=== PATIENT | male | born 1960 | race Caucasian/White ===

== ENCOUNTER 2023-01-04 05:14 | Observation (INO) ==
--- NOTE | 2022-12-06 15:03 | PAT Medication Instructions ---
Medication Instructions Date of Service December 06, 2022 Home Medications acetaminophen 500 mg tablet 500 mg PO Q6H PRN fexofenadine-pseudoephedrine ER 180 mg-240 mg tablet,ext.release 24 hr (Tatum- D 24 Hour) 1 tab PO QAM PRN omeprazole 10 mg capsule,delayed release 10 mg PO QAM DO NOT take the morning of surgery fexofenadine-pseudoephedrine ER 180 mg-240 mg tablet,ext.release 24 hr (Tatum- D 24 Hour) 1 tab PO QAM PRN Take morning of surgery With a small sip of water, OTHERWISE NOTHING TO EAT OR DRINK AFTER MIDNIGHT: acetaminophen 500 mg tablet 500 mg PO Q6H PRN(if needed) omeprazole 10 mg capsule,delayed release 10 mg PO QAM Take evening before surgery acetaminophen 500 mg tablet 500 mg PO Q6H PRN(if needed) Other Notes If you have any questions please call us at [phone] or [phone] or [phone] or [phone]
--- NOTE | 2022-12-15 12:39 | Anesthesiology Consultation ---
Date of Service December 15, 2022 Assessment & Plan (1) Encounter for pre-operative examination: - COVID screening: Per assessment on 12/15: No known COVID-19 positive contacts or current COVID-19 related symptoms. No recent Covid positive test result. - Outpatient joint assessment: Pt currently scheduled for inpatient pathway. If surgeon requests review for outpatient joint pathway, patient is an acceptable candidate for outpatient joint program from anesthesia standpoint pending surgeon's office assessment that patient is motivated, has good support and completes Same Day Joint Program preop requirements. - Preop testing: Patient having UA done at [facility] in near future- Awaiting UA. - Awaiting surgeon-ordered PCP preop evaluation (BARBER Giordano, appt 12/30). Chart Review Chart Review: Patient seen in Pre Admission Testing Teaching & Discussion Pre-Anesthesia Teaching/Discussion Notes: Instructed NPO after midnight before surgery,except medications with 15 cc of water. Medication instructions p rovided according to the PAT guidelines. History Surgery Operation Date: 01/04/23 07:00 Proposed Procedures p Right Total Knee Arthroplasty(Right) - El Gann MD Height/Weight Height: 5 ft 11 in Weight: 85.5 kg Allergies Allergy/AdvReac Type Severity Reaction Status Date / Time aspirin Allergy Severe Anaphylaxis Unverified 12/13/22 15:23 Medications Home Medications Medication Instructions Recorded Confirmed Last Taken acetaminophen 500 mg tablet 500 mg PO Q6H PRN Pain 12/03/22 12/03/22 Unknown fexofenadine-pseudoephedrine ER 1 tab PO QAM PRN Allergy Symptoms 12/03/22 12/03/22 Unknown 180 mg-240 mg tablet,ext.release 24 hr (Tatum-D 24 Hour) omeprazole 10 mg capsule,delayed 10 mg PO QAM 12/03/22 12/03/22 Unknown release Past Medical History Medical History GERD (gastroesophageal reflux disease) History of pulmonary embolism Travel + post-op vein stripping (2020), treated with AC for period of time (since discontinued), no issues since HTN (hypertension) No meds, being monitored Osteoarthritis Exercise / Class Metabolic Activity II 4-5 Yardwork/Stairs/Walk up hill (one FS (no CP, no SOB)) Past Surgical History Surgical History History of appendectomy History of arthroscopy of knee Multiple History of colonoscopy History of esophagogastroduodenoscopy (EGD) History of tonsillectomy History of varicose vein stripping LLE History of wisdom tooth extraction Past Anesthesia History No Hx of Anesthesia Complications and No Family Hx of Anesthesia Complications History of PONV No Hx of PONV and No Hx of Motion Sickness Social History Smoking Status: Never smoker Do You Dip or Chew Tobacco: No Hx Alcohol Use: Yes alcohol intake frequency: a few times a month Hx Substance Use: No substance use type: does not use Review of Systems Patient denies chest pain, shortness of breath, dyspnea on exertion, fever, chills, cough, wheezing, palpitations. Physical Exam Vital Signs VITALS BP 142/88 P 90 TEMP 98.2 SP02 98%RA RESP 16 PHYSICAL Mildly decreased cervical extension range of motion. Full TMJ range of motion. TMD 3.5 finger breaths Mallampati Score 2 Dentition: missing teeth, several crowns Lungs: clear throughout to auscultation Cardiac: regular rate and rhythm, no murmurs noted Spine: normal Carotid arteries: negative bruit Extremities: no LE edema Lab Results Anesthesia Preop Results Results Anesthesia Widget: WBC 5.38 K/ul (4.8-10.8) 12/15/22 Hgb 15.4 g/dl (14.0-18.0) 12/15/22 Hct 44.7 % (42.0-52.0) 12/15/22 Plt 190 K/uL (130-400) 12/15/22 Na 139 mmol/L (136-145) 12/15/22 K 3.8 mmol/L (3.5-5.1) 12/15/22 Cl 102 mmol/L (98-107) 12/15/22 CO2 29 mmol/L (21-32) 12/15/22 BUN 13 mg/dl (6-23) 12/15/22 Creat 0.84 mg/dl (0.6-1.4) 12/15/22 Glucose Level 90 mg/dl (70-99(Fasting)) 12/15/22 PT 11.0 Seconds (9.0-12.0) 12/15/22 PTT 28.4 Seconds (21.0-31.0) 12/15/22 INR 1.0 (0.9-1.1) 12/15/22 Blood Type B Positive 12/15/22 Antibody Screen NEGATIVE 12/15/22 Testing Electrocardiogram Date: 12/15/22 NSR at 91bpm. iRBBB. Chest X-Ray Date: 12/15/22 FINDINGS: PA and lateral chest radiographs are obtained. No prior studies are available for comparison at the time of dictation. The cardiomediastinal silhouette is unremarkable. The lungs and pleural spaces are clear. There is no pneumothorax. The bony thorax appears intact. IMPRESSION: No active disease in the chest.
[2023-01-04] MEDS ORDERED: ceFAZolin 2000MG 2,000 MG/15 ML SYR IV SCH (06:00)
[2023-01-04] MEDS ORDERED: ACETAMINOPHEN 500 MG TAB PO SCH (06:00)
[2023-01-04] MEDS ORDERED: LR 60ML/HR IV SCH (06:00)
[2023-01-04] MEDS ORDERED: LR 500ML BOLUS, THEN 15ML/HR IV SCH (06:00)
[2023-01-04] MEDS ORDERED: TRANEXAMIC ACID 1,000 MG **IV Pre-op IV SCH (06:00)
[2023-01-04] MEDS ORDERED: ROPIVACAINE 0.5% HCL/PF 150 MG, BUPIVACAINE 0.75% MPF 20 ML, EPINEPHrine 0.15 MG, dexAM... INFIL SCH (06:00)
[2023-01-04] MEDS ORDERED: Scopolamine 1 MG TDSY TD SCH (06:00)
[2023-01-04] MEDS ORDERED: TRANEXAMIC ACID 1,000 MG **IV Intra-op IV SCH (06:00)
[2023-01-04] MEDS ORDERED: ROPIVACAINE 0.5% 5 MG/ML 30 ML VIAL ONE (06:20)
--- NOTE | 2023-01-04 06:35 | History & Physical Bridge Note ---
Date of Service January 04, 2023 History & Physical Bridge Note I have examined the patient, reviewed the History & Physical and in the interval since the performance of the History & Physical I have noted the following changes of clinical significance: no changes noted
[2023-01-04] MEDS ORDERED: BUPIVACAINE 0.5 % 5 MG/1 ML PF 10ML VIAL ONE (06:39)
[2023-01-04] MEDS ORDERED: MIDAZOLAM HCL 1 MG/ML 2ML VIAL ONE (06:40)
[2023-01-04] MEDS ORDERED: PROPOFOL IV EMULSION 10 MG/ML 20 ML VIAL IV ONE (06:45)
[2023-01-04] MEDS ORDERED: ATROPINE SULFATE 0.1 MG/ML 10ML SYR IV PRN (06:56)
[2023-01-04] MEDS ORDERED: ePHEDrine sulfate 50 MG/ML AMP IV PRN (06:56)
[2023-01-04] MEDS ORDERED: HYDROmorphone INJ 1 MG/ML SYRINGE IV PRN (06:56)
[2023-01-04] MEDS ORDERED: ONDANSETRON INJ 2 MG/ML 2 ML VIAL IV PRN ×2 (06:56→10:14)
[2023-01-04] MEDS ORDERED: DEXAMETHASONE SOD INJ 4 MG/ML VIAL ONE (07:29)
[2023-01-04] MEDS ORDERED: ORTHO JOINT ANESTHETIC ONE (07:39)
--- NOTE | 2023-01-04 10:03 | Operative Report ---
Post Operative Report Pre & Post Diagnosis Operation Date: 01/04/23 07:00 Pre-Op Diagnosis: Right Knee Osteoarthritis Post-Op Diagnosis: Right Knee Osteoarthritis I identified the patient and participated in the time-out.: Yes Procedure Operation Date: 01/04/23 07:00 Actual Procedures p Right Total knee replacement, imageless computer assisted navigation (Right) - El Gann MD Surgeon El Gann MD Manager Latin Shantel Samayoa PA-C (No fellow avail) Estimated Blood Loss 125 Findings See Below Examined Under Anesthesia: ROM -- There was 10 degrees to 100 degrees of flexion Ligamentous examination -- revealed stable Basil, posterior drawer, varus and valgus stress at 0 and 30 degrees. Outerbridge Grade IV changes of medial compartment, grade III changes Patellofemoral compartment, and grade II changes lateral compartment. Fluids 1000 cc Specimens Right knee contents Anesthesia Type MAC Spinal Regional Complications none Indications This is a 62-year-old male who has clinical and radiographic findings consistent with osteoarthritis of the a right knee. I recommended that a right total knee replacement be performed. The patient understands the risks of surgery, which include but not limited to: bleeding, infection, re-operation, damage to nerves and arteries, continued knee pain, knee stiffness, DVT, and . The patient understands all of these instructions and explanations, all of his questions have been satisfactorily addressed and the patient has elected to proceed. Informed consent was signed. Description of Procedure IMPLANTS: 1. Femur: Triathlon #6 Right PS. 2. Tibia: Triathlon #6 [place]. 3. Insert: Triathlon #6 x 9 mm PS X3 poly. 4. Patella: Triathlon A35 x 10 mm X3 poly. 5. Palacos cement. Shantel Samayoa PA-C is assisting with positioning, retracting, and closure due to fellow not available. Procedure: The patient was taken to the Operating Room and placed in the supine position af ter spinal and adductor canal nerve block was administered. My initials and a multidisciplinary time-out were used to identify the right leg as the correct operative limb. A tourniquet was placed high in the thigh. Prior to the incision, 2 grams of intravenous Ancef were given. The right leg was then prepped and draped in a standard sterile fashion. An Esmarch was used to exsanguinate the leg and the tourniquet was inflated to 250 mmHg. The planned mid-line 20 cm incision was created exposing the extensor mechanism. The medial parapatellar arthrotomy was made and the patella was everted. The patella was addressed first. It was prepared by reaming from 22 mm down to 13 mm. An A35 button was found to fit best. The peg holes were made in the standard fashion. The femur was addressed next and using computer assisted OrthoAlign with 3 degrees of flexion and 0 degrees of valgus, removing 10 mm in the standard fashion for the distal cut. The cut was made and the 4-in-1 cutting block for a size 6 femur was placed. These cuts and the cuts to place the box were made in the standard fashion. Our attention was then drawn to the tibia cut with using imageless computer assisted OrthoAlign, taking 2 mm from the medial low side. There was sufficient extension and flexion gap to fit a 9 mm spacer. A #6 Tibial baseplate fit well. A trial with a 9 mm spacer showed excellent stability in both flexion and extension, with good ligament balance, and thumbs free patellar tracking. Range of motion of 0-125 degrees. The tibial baseplate was prepped for the keel and stem. All components were removed. The tourniquet was deflated. Hemostasis was obtained. 90 ml of total knee cocktail were injected into the soft tissues and periosteum. After a 15 minute break, the limb was exsanguinated again and the tourniquet was re-inflated. All surfaces were copiously irrigated prior to placement of the components. The femoral component followed by Tibial baseplate were cemented in place and the 9 mm X3 poly was placed. Next, the patellar button was placed using the same cement. Once the cement had cured, the range of motion and stability were unchanged. The extensor mechanism was closed with 1-0 Vicryl and 0 Stratafix with the knee bent approximately 60 degrees in a standard fashion. The peritenon and deep fascia was closed with 2-0 Vicryl. The subcutaneous layer was closed with 3-0 Vicryl. The skin was closed with Zipline and shield. The limb was cleaned and dried. 4x4 dressing was placed over top followed by ABDs, sterile Webril, and a foot to thigh Terry bandage. The patient was then transferred to the Recovery Room in stable condition. The sponge and needle counts were correct. POST-OP INSTRUCTIONS: The patient will be WBAT. The patient will be admitted to the hospital. Complete 24 hour course antibiotics. Labs will be obtained during the stay. DVT prophylaxis will included Eliquis 2.5 mg BID for 6 weeks, TEDs, and mechanical foot pumps. Plan outpatient dressing change postop day #4 and covered with a Silverlon dressing. I attest to the content of the Intraoperative Record and any orders documented therein. Any exceptions are noted below.
--- NOTE | 2023-01-04 10:03 | Post Operative Brief Note ---
Immediate Post Op Note v1 Date of Surgery January 04, 2023 Pre & Post Diagnosis Operation Date: 01/04/23 07:00 Pre-Op Diagnosis: Right Knee Osteoarthritis Post-Op Diagnosis: Right Knee Osteoarthritis I identified the patient and participated in the time-out.: Yes Procedure Operation Date: 01/04/23 07:00 Actual Procedures p Right Total Knee Arthroplasty(Right) - El Gann MD Surgeon El Gann MD Mutuel Department Manager Shantel Samayoa PA-C (No fellow avail) Estimated Blood Loss 125 Findings Consistent with Post-Op Diagnosis Fluids 1000 cc Specimens Right knee contents Anesthesia Type MAC Spinal Regional Complications none
[2023-01-04] MEDS ORDERED: METOCLOPRAMIDE HCL INJ 5 MG/ML 2 ML VIAL IV PRN (10:14)
[2023-01-04] MEDS ORDERED: HYDROmorphone INJ 0.5 MG/0.5 ML SYR IV PRN (10:14)
[2023-01-04] MEDS ORDERED: MAGNESIUM HYDROXIDE SUSP 30 ML UDC PO PRN (10:14)
[2023-01-04] MEDS ORDERED: NALOXONE HCL 0.4 MG/1 ML VIAL/CARP IV PRN (10:14)
[2023-01-04] MEDS ORDERED: bisacodyL 10 MG SUPP PR PRN (10:14)
[2023-01-04] MEDS ORDERED: SODIUM CHLORIDE 0.9% 1,000 ML IV SCH (10:15)
[2023-01-04] MEDS ORDERED: TAMSULOSIN HCL 0.4 MG CAP PO PRN (10:18)
--- NOTE | 2023-01-04 10:36 | Operative Report ---
Post Operative Report Pre & Post Diagnosis Operation Date: 01/04/23 07:00 Pre-Op Diagnosis: Right Knee Osteoarthritis Post-Op Diagnosis: Right Knee Osteoarthritis I identified the patient and participated in the time-out.: Yes Procedure Operation Date: 01/04/23 07:00 Actual Procedures p Right Total Knee Arthroplasty(Right) - El [place] Gann MD Surgeon Dr Gann Manager Physical Shantel Samayoa PA-C (No fellow avail) Estimated Blood Loss 125 Findings Consistent with Post-Op Diagnosis Specimens none Description of Procedure Pt was taken to operating room and properly positioned for procedure. Refer to anesthesia's note for anesthesia used. Pt was given pre-op antibiotics. Prepped and draped in sterile fashion. I was present during the entire case and assisted with positioning, instrumentation, closure and dressings. Please see surgeon's op report for further detail. Pt was awake and transferred to PACU in stable condition I attest to the content of the Intraoperative Record and any orders documented therein. Any exceptions are noted below.
--- NOTE | 2023-01-04 11:24 | XRay Report ---
XR knee RT 1 or 2V routine CLINICAL HISTORY: Surgical Post Op TECHNIQUE: 2 views of the right knee were obtained. Comparison: Comparison is made to leg length study 01/28/2022 FINDINGS: Patient is status post total knee arthroplasty with expected postsurgical changes including soft tiss ue swelling and subcutaneous emphysema. No periarticular lucency or hardware fracture is seen. IMPRESSION: Expected postoperative appearance status post placement of total knee arthroplasty. ACT 112: Negative or not required by law. Electronically signed by: Jaime Kasper M.D. 01/04/2023 11:23 AM
[2023-01-04] MEDS: ALLERGY Noted to ORDERED Medication SCH ×6 (13:08→23:23)
--- NOTE | 2023-01-04 14:09 | Anesthesiology Progress Note ---
Date of Service January 04, 2023 Anesthesia Post Procedure Vital Signs Vital Signs: Temp Pulse Resp BP Pulse Ox O2 Del Method O2 Flow Rate 01/04/23 13:58 36.7 C 82 16 146/106 H 96 Room Air 01/04/23 12:30 82 14 132/87 98 Room Air 01/04/23 12:00 74 14 149/94 H 99 Room Air 01/04/23 11:45 72 14 135/99 98 Room Air 01/04/23 11:30 80 16 133/97 97 Room Air 01/04/23 11:20 95 H 12 139/105 H 98 Room Air 01/04/23 11:10 80 12 142/93 H 97 Room Air 01/04/23 11:00 92 H 18 142/92 H 98 Room Air 01/04/23 10:50 79 12 138/96 98 Room Air 01/04/23 10:40 82 12 153/88 H 97 Room Air 01/04/23 10:30 36.4 C L 84 13 148/85 H 97 Room Air 01/04/23 10:20 81 15 128/82 99 Oxymask 9 01/04/23 10:11 36.5 C 90 15 136/91 100 Oxymask 9 01/04/23 06:21 176/108 H 01/04/23 05:55 169/115 H 01/04/23 05:31 36.8 C 83 20 172/124 H 100 Room Air Pain Intensity Right Knee: Pain Intensity: 5 Transfer of Care Handoff Completed per policy Notes Mental Status: alert / awake / arousable Patient Amnestic to Procedure: Yes Nausea / Vomiting: adequately controlled Pain: adequately controlled Airway Patency, RR, SpO2: stable & adequate BP & HR: stable & adequate Hydration State: stable & adequate Anesthetic Complications: no major complications apparent
[2023-01-04] MEDS: ACETAMINOPHEN 500 MG TAB PO SCH ×2 (14:59→21:01)
[2023-01-04] MEDS: Scopolamine CHECK PATCH PLACEMENT SCH ×2 (15:00→23:23)
[2023-01-04] MEDS: oxyCODONE HCL IR 5 MG TAB (IMMEDIATE RELEASE) PO PRN ×2 (15:48→23:22)
--- NOTE | 2023-01-04 16:11 | Orthopedic Progress Note ---
Date of Service January 04, 2023 Assessment & Plan (1) Osteoarthritis of right knee: Plan: POD #0 s/p Right TKA, doing as well as expected. Resume diet. WBAT with walker. OOB to chair. Continue pain control. Check labs tomorrow. DVT prophylaxis: TEDs 3 weeks, foot pumps while in hospital, Eliquis 2.5 mg BID for 6 weeks. PT/OT. Will have dressing changed in the office 01/07/23. D/C planning. Present on Admission?: Yes Admission and Anticipated Discharge Date Admission Date: January 04, 2023 Subjective Doing well Physical Exam Physical Exam: RLE: Dressing clean, dry, intact. wiggiling toes and ankle. Sensation to light touch intact. BCR < 2 sec. Able to preform straight leg raise. Results & Data Vital Signs (Past 12 Hours) Vital Signs Temp Pulse Resp BP Pulse Ox O2 Del Method O2 Flow Rate 01/04/23 13:58 36.7 C 82 16 146/106 H 96 Room Air 01/04/23 12:30 82 14 132/87 98 Room Air 01/04/23 12:00 74 14 149/94 H 99 Room Air 01/04/23 11:45 72 14 135/99 98 Room Air 01/04/23 11:30 80 16 133/97 97 Room Air 01/04/23 11:20 95 H 12 139/105 H 98 Room Air 01/04/23 11:10 80 12 142/93 H 97 Room Air 01/04/23 11:00 92 H 18 142/92 H 98 Room Air 01/04/23 10:50 79 12 138/96 98 Room Air 01/04/23 10:40 82 12 153/88 H 97 Room Air 01/04/23 10:30 36.4 C L 84 13 148/85 H 97 Room Air 01/04/23 10:20 81 15 128/82 99 Oxymask 9 01/04/23 10:11 36.5 C 90 15 136/91 100 Oxymask 9 01/04/23 06:21 176/108 H 01/04/23 05:55 169/115 H 01/04/23 05:31 36.8 C 83 20 172/124 H 100 Room Air Laboratory Results Impressions Knee X-Ray 01/04/23 10:14 XR knee RT 1 or 2V routine CLINICAL HISTORY: Surgical Post Op TECHNIQUE: 2 views of the right knee were obtained. Comparison: Comparison is made to leg length study 01/28/2022 FINDINGS: Patient is status post total knee arthroplasty with expected postsurgical changes including soft tissue swelling and subcutaneous emphysema. No periarticular lucency or hardware fracture is seen. IMPRESSION: Expected postoperative appearance status post placement of total knee arthroplasty. ACT 112: Negative or not required by law. Electronically signed by: Jaime Kasper M.D. 01/04/2023 11:23 AM
[2023-01-04] MEDS: FERROUS GLUCONATE 324 MG TAB PO SCH (17:19)
[2023-01-04] MEDS: ASCORBIC ACID 500 MG TAB PO SCH (17:20)
[2023-01-04] MEDS: ceFAZolin 2000MG 2,000 MG/15 ML SYR IV SCH ×2 (17:20→23:23)
[2023-01-04] MEDS ORDERED: SENNA 8.6 MG TAB PO SCH (21:00)
[2023-01-04] MEDS: DOCUSATE SODIUM 100 MG CAP PO SCH (21:01)
--- OUTSIDE RECORDS SUMMARY | 2023-01-05 00:21 | External Medical Summary | Continuity of Care Document ---
Author Name Unknown Organization [facility] [address] [place], [place] [address] Address [address] [place] [phone] Care Team Providers Care Electrostatic Painter Name Role Phone Mckenzie Gaytan Primary Care Physician [phone] [facility] [id number] Date(s): 10/22/22 - 10/22/22 [facility] [address] [place] [place] [id number] [facility] [address] [address] Encounter Diagnosis OA (osteoarthritis) of knee(Discharge Diagnosis) - 10/22/22 Discharge Disposition: Home or Self Care Attending Physician: CYNTHIA Carroll Dennis Allergies, Adverse Reactions, Alerts Substance Reaction Severity Status aspirin Swelling Active Allergy Not found in Search 1 Active 1Root Beer Medications Tatum 180 mg oral tablet Start: 11/29/12 9:38:00, 1 tab, PO, Daily, PRN: as needed for allergy symptoms Start Date: 11/29/12 Status: Ordered Euflexxa 10 mg/mL intra-articular solution Start: 10/14/22 12:38:00 EDT, 20 mg =, intra-articular, q7days, Disp# 12 mL, Refills: 0, 6 syringesfor B/L knees. Please ship to physician's office: [address] [facility] [address], Note to Pharmacy: B/L KNEE DJD M17.0, Pharmacy: Ac... Start Date: 10/14/22 Stop Date: 11/04/22 Status: Ordered Nasal Mist 0.05% nasal spray Start: 05/26/22 9:04:00 EST, 2 spray, each nostril, bid Start Date: 05/26/22 Status: Ordered PriLOSEC OTC 20 mg oral delayed release tablet Start: 11/29/12 9:37:00, 1 tab, PO, Daily Start Date: 11/29/12 Status: Ordered Mental Status 10/22/22 Barriers to Learning one year None evide nt Mandatory Health Literacy Documentation Yes Health Literacy Communication Barriers N ever Primary Language Persian Problem List Condition Confirmation Course Effective Dates Status Health St atus Informant Knee pain, left Confirmed Active OA (osteoarthritis) of knee Confirmed Active Varicose veins of lower extremity Confirmed Active Diagnosis Diagnosis Type Effective Dates Health Status Cl inical Service Informant OA (osteoarthritis) of knee Discharge Diagnosis 10/22/22 Procedures Procedure Date Related Diagnosis Body Site Status Appendectomy Completed Hernia repair Completed knee surgery Completed Tonsillectomy and adenoidectomy Completed vein removed Completed Vital Signs Most recent to oldest [Reference Range]: 1 Height 181 cm (10/22/22 1:04 PM) Patient Weight 85 kg (10/22/22 1:04 PM) Body Mass Index 25.95 kg/m2 (10/22/22 1:04 PM) Social History Social History Type Response Smoking Status Never smoked cigaret joey Sex Male Patient Care team information Care Team Personnel Name: CYNTHIA Mosley Lynn Position: Physician Arborist Exempt - Vasc Surg Member Role: Lifetime Relationship Address: Address: [address] [place] [address] Name: CYNTHIA Gaytan Jennifer L Position: Referring Member Role: Primary Care Provider Address: Address: [address] [place] [id number] Care Team Related Persons Name: CRISTIAN PANDEY Address: [place] Address: home [address] [phone] Name: ANNA PANDEY Address: [address] [id number]
--- OUTSIDE RECORDS SUMMARY | 2023-01-05 00:21 | External Medical Summary | Continuity of Care Document ---
Author Name Unknown Organization [facility] [address] [place], [place] [address] Address [address] [place] [phone] Care Team Providers Care Gas Attendant Name Role Phone Mckenzie Gaytan Primary Care Physician [phone] Encounter [facility] [id number] Date(s): 05/26/22 - 05/26/22 [facility] [address] [place] [id number] [facility] [address] [address] Encounter Diagnosis Knee osteoarthritis(Discharge Diagnosis) - 05/26/22 Discharge Disposition: Home or Self Care Attending Physician: CYNTHIA Carroll, Gerald Allergies, Adverse Reactions, Alerts Substance Reaction Severity Status aspirin Swelling Active Allergy Not found in Search 1 Active 1Root Beer Medications Tatum 180 mg oral tablet Start: 11/29/12 9:38:00, 1 tab, PO, Daily, PRN: as needed for allergy symptoms Start Date: 11/29/12 Status: Ordered Euflexxa 10 mg/mL intra-articular solution Start: 05/26/22 17:18:00 EST, 20 mg =, intra-articular, q7days, Disp# 12 mL, Refills: 0, 6 syringesfor B/L knees. Please ship to physician's office: [address] [facility]. [address] [address], Note to Pharmacy: B/L KNEE DJD M17.0, Pharmacy: .. Start Date: 05/26/22 Stop Date: 06/16/22 Status: Ordered Nasal Mist 0.05% nasal spray Start: 05/26/22 9:04:00 EST, 2 spray, each nostril, bid Start Date: 05/26/22 Status: Ordered PriLOSEC OTC 20 mg oral delayed release tablet Start: 11/29/12 9:37:00, 1 tab, PO, Daily Start Date: 11/29/12 Status: Ordered Mental Status 05/26/22 Barriers to Learning one year None evide nt Mandatory Health Literacy Documentation Yes Health Literacy Communication Barriers N ever Primary Language Urdu Problem List Condition Confirmation Course Effective Dates Status Health St atus Informant Knee pain, left Confirmed Active Varicose veins of lower extremity Confirmed Active Diagnosis Diagnosis Type Effective Dates Health Status Clinical Service Informant Knee osteoarthritis Discharge Diagnosis 05/26/22 Procedures Procedure Date Related Diagnosis Body Site Status Appendectomy Completed Hernia repair Completed knee surgery Completed Tonsillectomy and adenoidectomy Completed vein removed Completed Vital Signs Most recent to oldest [Reference Range]: 1 Height 182.5 cm (05/26/22 9:03 AM) Patient Weight 86 kg (05/26/22 9:03 AM) Body Mass Index 25.82 kg/m2 (05/26/22 9:03 AM) Social History Social History Type Response Smoking Status Never smoked cigaret joey Sex Male Patient Care team information Personnel Name: CYNTHIA Gaytan, Mckenzie Saul Address: Address: [address] [place] [id number]
--- OUTSIDE RECORDS SUMMARY | 2023-01-05 00:21 | External Medical Summary | Continuity of Care Document ---
Author Name Unknown Organization [facility] [address] [place], [place] [address]A Address [address] [place] [phone] Care Team Providers Care Web Site Manager Name Role Phone Mckenzie Gaytan Primary Care Physician [phone] [id number] 08/13/22 - 08/13/22 [facility] [address] [id number] [facility] [address] [address] Encounter Diagnosis OA (osteoarthritis) of knee(Discharge Diagnosis) - 08/13/22 Discharge Disposition: Home or Self Care Attending Physician: CYNTHIA Carroll Dennis Allergies, Adverse Reactions, Alerts Substance Reaction Severity Status aspirin Swelling Active Allergy Not found in Search 1 Active 1Root Beer Medications Tatum 180 mg oral tablet Start: 11/29/12 9:38:00, 1 tab, PO, Daily, PRN: as needed for allergy symptoms Start Date: 11/29/12 Status: Ordered Euflexxa 10 mg/mL intra-articular solution Start: 06/14/22 15:54:00 EST, 20 mg =, intra-articular, q7days, Disp# 12 mL, Refills: 0, 6 syringesfor B/L knees. [facility] [address] [address], Note to Pharmacy: B/L KNEE DJD M17.0, Pharmacy: Ac... Start Date: 06/14/22 Stop Date: 07/05/22 Status: Ordered Nasal Mist 0.05% nasal spray Start: 05/26/22 9:04:00 EST, 2 spray, each nostril, bid Start Date: 05/26/22 Status: Ordered PriLOSEC OTC 20 mg oral delayed release tablet Start: 11/29/12 9:37:00, 1 tab, PO, Daily Start Date: 11/29/12 Status: Ordered Mental Status 08/13/22 Barriers to Learning one year None evide nt Mandatory Health Literacy Documentation Yes Health Literacy Communication Barriers N ever Primary Language Haitian Problem List Condition Confirmation Course Effective Dates Status Health St atus Informant Knee pain, left Confirmed Active OA (osteoarthritis) of knee Confirmed Active Varicose veins of lower extremity Confirmed Active Diagnosis Diagnosis Type Effective Dates Health Status Cl inical Service Informant OA (osteoarthritis) of knee Discharge Diagnosis 08/13/22 Procedures Procedure Date Related Diagnosis Body Site Status Appendectomy Completed Hernia repair Completed knee surgery Completed Tonsillectomy and adenoidectomy Completed vein removed Completed Social History Social History Type Response Smoking Status Never smoked cigaret joey Sex Male Patient Care team information Care Team Personnel Name: CYNTHIA Mosley Lynn Position: Physician Production Tester Exempt - Vasc Surg Member Role: Lifetime Relationship Address: Address: [address] [place] [address] Name: CYNTHIA Gaytan Jennifer L Position: Referring Member Role: Primary Care Provider Address: Address: [address] [place] [id number] Care Team Related Persons Name: CRISTIAN PANDEY Address: [place] Address: [address] [id number] Name: ANNA PANDEY Address: [address] [id number]
--- OUTSIDE RECORDS SUMMARY | 2023-01-05 00:21 | External Medical Summary | Continuity of Care Document ---
Author Name Unknown Organization [place] [id number] Address [address] [place] [phone] Care Team Providers Care District Leader Name Role Phone Mckenzie Gaytan Primary Care Physician [phone] Encounter [facility] [id number] Date(s): 01/28/22 - 01/28/22 [facility] [address] [place], [place] [address] [facility] [address] [address] Encounter Diagnosis Knee pain, left(Discharge Diagnosis) - 01/28/22 OA (osteoarthritis) of knee(Discharge Diagnosis) - 01/28/22 Discharge Disposition: Home or Self Care Attending Physician: MD Azeem, El A Allergies, Adverse Reactions, Alerts Substance Reaction Severity Status aspirin Swelling Active Allergy Not found in Search 1 Active 1Root Beer Assessment and Plan Extracted from: Title:Bilateral knee pain Author:MD Azeem, El A Date:01/28/22 OUTPATIENT NOTE Name: SAGE PANDEY Patient Number:1 [id number] : 1960 Date of Service: 01/28/2022 CHIEF COMPLAINT: Bilateral knee pain. HISTORY OF PRESENT ILLNESS: Sage is a pleasant 61-year-old male, made seen many years ago for left knee OA. He responded very well to a cortisone injection back in 2018. His pain has started to worsen in the medial aspect of both knees the right worse than left. He notes occasional catching but denies locking. He does note occasional swelling. He rates his pain an 8/10. PAST MEDICAL HISTORY: Noted in the shared EMR. PAST SURGICAL HISTORY: Noted in the shared EMR. MEDICATIONS: 2 meds none in the shared EMR. ALLERGIES: Aspirin. FAMILY HISTORY: Noncontributory. 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 Denies smoking REVIEW OF SYSTEMS: A 14-point review of systems is noted in the office medical record. PHYSICAL EXAM: Patient is in no acute distress breathing easily at 16 breaths per minute. The patient ambulates with a normal gait and coordination, has significant pain with squatting and heel walking. They have an appropriate mood and affect. They weigh 87 kg and are 181 cm tall. Bilateral lower extremities: 2+ DP pulse Sensation to light touch is intact Motor to the gastroc soleus, tibialis anterior, and EHL is 5/5. Able to perform straight leg raise. + Medial joint line tenderness. - Brian's Ligamentous examination exhibits: Stable Basil 0 mm anterior translation and firm endpoint Posterior drawer stable Varus valgus stress at 0-5 and 30 stable Valgus stress at 0-5 and 30 stable Trace knee effusion on the right. Range of motion right knee 5 120, left knee 0 125. + Tenderness to palpation right knee medial and lateral patellar facets. RADIOGRAPHS: I personally performed the interpretation of the bilateral knee radiographs which included hips to ankles, AP standing, 45 degree flexion PA view, lateral, and sunrise views, which showed medial joint space narrowing, [id number] on the right and near ldon-uj-oeya on the left. There is marginal osteophytes, subchondral cyst, and sclerosis. There is 5 degrees varus alignment on the right and 7 degrees varus alignment on the left. IMPRESSION: Bilateral knee pain secondarily to OA, and varus alignment. Acute on chronic Goal: Decrease pain PLAN: RICE. Short course of anti-inflammatories, alternating with Tylenol as needed for pain. He was offered cortisone injections today. The risks of the injection were discussed include but not limited to: Infection, bleeding, nerve damage, elevated glucose levels, and permanent skin changes at the site of the injection. The patient wished to proceed with the injection. They will keep track of how much pain relief they obtains and for how long. They will ice tonight and over the next several days and understands that they may be more painful due to a steroid flare. The injections were performed by my PA Pamela under my personal supervision, please refer to her note for complete details. May also trial glucosamine and chondroitin. He would benefit from an hospital security officer brace and will try it on the right side first and if successful, could try 1 on the left side as well. In addition he would benefit from MCGUIRE injections. He will think about it and contact the office if he would like to start those. He was offered a follow-up appointment, but is elected to follow-up on an as- needed basis. The patient understood all my instructions and explanation; all their questions were satisfactorily addressed. PHYSICAL EXAM: [] RADIOGRAPHS: []. IMPRESSION: [] [Acute] Goal: [] PLAN: [] _ Extracted from: Title:Clinical Document Author:CYNTHIA Carson Je nnifer R Date:01/28/22 ORTHOPAEDICS OUTPATIENT NOTE Name: SAGE PANDEY Patient Number: [id number] : 1960 Date of Service: 01/28/2022 HPI: Patient was here today to see Dr. Gann for bilateral knee pain. He has not had pain for approximately 4 years. He presents today with pain in both of his knees. He did well with cortisone injections in the past and is requesting another set of those today. Apparently I gave him his last set and he enjoyed how well his knees felt and requested me to do those again today. Dr. Gann asked me to give him. Procedure: Patient was placed in the upright seated position. Timeout verbal consent was obtained. Injection sites were confirmed by Khai Rodriguez LPN. His right knee was identified first and the anterolateral portal was marked, cleansed with alcohol, cleansed with anesthetized with ethyl chloride and cleansed with alcohol again. I then injected 2 cc of half percent Marcaine plain, 1 cc 1% lidocaine plain and 40 mg of Kenalog. Pressure was applied hemostasis and a band is applied. Attention was then turned to the left knee. The left knee was repaired in the same way. Then injected 2 cc of half percent Marcaine plain, 1 cc of 1% lidocaine plain and 40 mg Kenalog. Pressure was applied for hemostasis and a band is applied. He will follow-up with myself or Dr. Gann as needed. Medications Tatum 180 mg oral tablet Start: 11/29/12 9:38:00, 1 tab, PO, Daily, PRN: as needed for allergy symptoms Start Date: 11/29/12 Status: Ordered PriLOSEC OTC 20 mg oral delayed release tablet Start: 11/29/12 9:37:00, 1 tab, PO, Daily Start Date: 11/29/12 Status: Ordered Mental Status 01/28/22 Barriers to Learning one year None evide nt Mandatory Health Literacy Documentation Yes Health Literacy Communication Barriers N ever Primary Language Canadian Problem List Condition Confirmation Course Effective Dates Status Health St atus Informant Knee pain, left Confirmed Active Varicose veins of lower extremity Confirmed Active Diagnosis Diagnosis Type Effective Dates Health Status Cl inical Service Informant OA (osteoarthritis) of knee Discharge Diagnosis 01/28/22 Non-Specified Knee pain, left Discharge Diagnosis 01/28/22 Procedures Procedure Date Related Diagnosis Body Site Status Appendectomy Completed Hernia repair Completed knee surgery Completed Tonsillectomy and adenoidectomy Completed vein removed Completed Vital Signs Most recent to oldest [Reference Range]: 1 Height 181 cm (01/28/22 2:49 PM) Patient Weight 87 kg (01/28/22 2:49 PM) Body Mass Index 26.56 kg/m2 (01/28/22 2:49 PM) Social History Social History Type Response Smoking Status Never smoked cigaret joey Sex Male Patient Care team information Personnel Name: CYNTHIA Gaytan, Mckenzie Saul Address: Address: [address] [place] [phone]
--- OUTSIDE RECORDS SUMMARY | 2023-01-05 00:21 | External Medical Summary | Continuity of Care Document ---
Author Name Unknown Organization [place] [id number] Address [address] [place] [phone] Care Team Providers Care Online Marketing Director Name Role Phone Mckenzie Gaytan Primary Care Physician [phone] [id number] Date(s): 10/27/22 - 10/27/22 [facility] [address] [id number] [facility] [address] [address] Encounter Diagnosis OA (osteoarthritis) of knee(Discharge Diagnosis) - 10/27/22 Discharge Disposition: Home or Self Care Attending Physician: MD Azeem, El Quintanilla Allergies, Adverse Reactions, Alerts Substance Reaction Severity Status aspirin Swelling Active Allergy Not found in Search 1 Active 1Root Beer Assessment and Plan Extracted from: Title:Right knee pain Author:MD Gann Dov A Da te:10/27/22 OUTPATIENT NOTE Name: SAGE PANDEY Patient Number:1 [id number] : 1960 Date of Service: 10/27/2022 CHIEF COMPLAINT: Right knee pain. HISTORY OF PRESENT ILLNESS: Sage is a pleasant 61-year-old male, who I have followed for bilateral knee OA, presents today with right knee pain and would like to discuss surgery. He responded very well to a cortisone injection back in 2018. He notes occasional catching but denies locking. He does note occasional swelling. He rates his pain an 8/10. The last cortisone injection did not provide him with significant relief. He was unable to start MCGUIRE injections due to the extensive cost and is unsure that they will work. He has nighttime pain and cannot get comfortable. PHYSICAL EXAM: Bilateral lower extremities: 2+ DP pulse Sensation to light touch is intact Motor to the gastroc soleus, tibialis anterior, and EHL is 5/5. Able to perform straight leg raise. Range of motion right knee 5 90, left knee 0 125. RLE: + Medial joint line tenderness. - Brian's Ligamentous examination exhibits: Stable and unchanged. Trace knee effusion on the right. + Tenderness to palpation right knee medial and lateral patellar facets. RADIOGRAPHS: I reviewed the bilateral knee radiographs which included hips to ankles, AP standing, 45 degree flexion PA view, lateral, and sunrise views, which showed medial joint space narrowing, [id number] on the right and near cyye-ll-xzxp on the left. There is marginal osteophytes, subchondral cyst, and sclerosis. There is 5 degrees varus alignment on the right and 7 degrees varus alignment on the left. IMPRESSION: Bilateral knee pain secondarily to OA, and varus alignment. Acute on chronic Goal: Decrease pain PLAN: After a lengthy discussion with the patient today regarding my above clinical findings, as well as reviewing their imaging with them, their treatment options of conservative management with injections, activity modifications versus surgical intervention with a knee replacement were discussed. The risk and benefits of each were discussed. The risks of surgery included but not limited to: Infection, bleeding, nerve damage, continued pain, failure of the hardware, deep vein thrombosis, PE, stroke, HI, and . They would like to proceed with surgery and informed consent was signed right TKA. They will speak with my outpatient surgery rn and have a history and physical examination performed. The patient understood all my instructions and explanation; all their questions were satisfactorily addressed. This chart was completed utilizing [employer] voice recognition software. Grammatical errors, random word insertions, pronoun errors, and incomplete sentences are an occasional consequence of the system. Any questions or concerns about the content, text, or information contained within the body of this dictation should be addressed directly to the author for clarification. _ Medications Tatum 180 mg oral tablet Start: 11/29/12 9:38:00, 1 tab, PO, Daily, PRN: as needed for allergy symptoms Start Date: 11/29/12 Status: Ordered Euflexxa 10 mg/mL intra-articular solution Start: 10/14/22 12:38:00 EDT, 20 mg =, intra-articular, q7days, Disp# 12 mL, Refills: 0, 6 syringesfor B/L knees. Please ship to physician's office: [address] [place] [address], Note to Pharmacy: B/L KNEE DJD M17.0, Pharmacy: Ac... Start Date: 10/14/22 Stop Date: 11/04/22 Status: Ordered Nasal Mist 0.05% nasal spray Start: 05/26/22 9:04:00 EST, 2 spray, each nostril, bid Start Date: 05/26/22 Status: Ordered PriLOSEC OTC 20 mg oral delayed release tablet Start: 11/29/12 9:37:00, 1 tab, PO, Daily Start Date: 11/29/12 Status: Ordered Mental Status 10/27/22 Barriers to Learning one year None evide nt Mandatory Health Literacy Documentation Yes Health Literacy Communication Barriers N ever Primary Language Lithuanian Problem List Condition Confirmation Course Effective Dates Status Health St atus Informant Knee pain, left Confirmed Active OA (osteoarthritis) of knee Confirmed Active Varicose veins of lower extremity Confirmed Active Diagnosis Diagnosis Type Effective Dates Health Status Cl inical Service Informant OA (osteoarthritis) of knee Discharge Diagnosis 10/27/22 Procedures Procedure Date Related Diagnosis Body Site Status Appendectomy Completed Hernia repair Completed knee surgery Completed Tonsillectomy and adenoidectomy Completed vein removed Completed Social History Social History Type Response Smoking Status Never smoked cigaret joey Sex Male Outpatient Note * MD Azeem, El A: PERFORM, MODIFY Event Display: .Outpt Note Authored Date: [id number] OUTPATIENT NOTE Name: SAGE PANDEY Patient Number:1 [id number] : 1960 Date of Service: 10/27/2022 CHIEF COMPLAINT: Right knee pain. HISTORY OF PRESENT ILLNESS: Sage is a pleasant 61-year-old male, who I have followed for bilateral knee OA, presents today with right knee pain and would like to discuss surgery. He responded very well to a cortisone injection back in 2018. He notes occasional catching but denies locking. He does note occasional swelling. He rates his pain an 8/10. The last cortisone injection did not provide himwith significant relief. He was unable to start MCGUIRE injections due to the extensive cost and is unsure that they will work. He has nighttime pain and cannot get comfortable. PHYSICAL EXAM: Bilateral lower extremities: 2+ DP pulse Sensation to light touch is intact Motor to the gastroc soleus, tibialis anterior, and EHL is 5/5. Able to perform straight leg raise. Range of motion right knee 590, left knee 0125. RLE: + Medial joint line tenderness. - Brian's Ligamentous examination exhibits: Stable and unchanged. Trace knee effusion on the right. + Tenderness to palpation right knee medial and lateral patellar facets. RADIOGRAPHS: I reviewed the bilateral knee radiographs which included hips to ankles, AP standing, 45 degree flexion PA view, lateral, and sunrise views, which showed medial joint space narrowing, efwp-jq-[id number] on the right and near wueq-di-hiqp on the left. There is marginal osteophytes, subchondral cyst, and sclerosis. There is 5 degrees varus alignment on the right and 7 degrees varus alignmenton the left. IMPRESSION: Bilateral knee pain secondarily to OA, and varus alignment. Acute on chronic Goal: Decrease pain PLAN: After a lengthy discussion with the patient today regarding my above clinical findings, as well as reviewing their imaging with them, their treatment options of conservative management with injections, activity modifications versus surgical intervention with a knee replacement were discussed. The risk and benefits of each were discussed. The risks of surgery included but not limited to: Infection, bleeding, nerve damage, continued pain, failure of the hardware, deep vein thrombosis, PE, stroke, HI, and . They would like to proceed with surgery and informed consent was signed right TKA. They will speak with my outpatient surgery rn and have a history and physical examination performed. The patient understood all my instructions and explanation; all their questions were satisfactorilyaddressed. This chart was completed utilizing [employer] voice recognition software. Grammatical errors,random word insertions, pronoun errors, and incomplete sentences are an occasional consequence of the system. Any questions or concerns about the content, text, or information contained within the body of this dictation should be addressed directly to the author for clarification. _ Electronic Signature on File Electronically Reviewed/Signed by: El Gann MD Author Signature Dt/Tm:10/27/2022 04:20 PM [facility] Energy Conservation Representative [facility] [address], [place] [address] DAB Patient Care team information Care Team Personnel Name: Minarchick, PA-C, Jossie Position: Physician Rn Home Care Exempt - Vasc Surg Member Role: Lifetime Relationship Address: Address: [address] [place] [address], [place] [address] Name: CYNTHIA Gaytan, Mckenzie Saul Position: Referring Member Role: Primary Care Provider Address: Address: [address] [place] [address] Care Team Related Persons Name: CRISTIAN PANDEY Address: [place] Address: home [address] [phone] Name: ANNA PANDEY Address: home [address] [id number]
--- NOTE | 2023-01-05 05:35 | Orthopedic Progress Note ---
Date of Service January 05, 2023 Assessment & Plan (1) Osteoarthritis of right knee: Plan: POD #1 s/p Right TKA, doing as well as expected. Resume diet. WBAT with walker. OOB to chair. Continue pain control. Check labs tomorrow. DVT prophylaxis: TEDs 3 weeks, foot pumps while in hospital, Eliquis 2.5 mg BID for 6 weeks. PT/OT. Will have dressing changed in the office 01/07/23. D/C planning. Admission and Anticipated Discharge Date Admission Date: January 04, 2023 Subjective Doing well Physical Exam Physical Exam: RLE: Dressing clean, dry, intact. wiggiling toes and ankle. Sensation to light touch intact. BCR < 2 sec. Able to preform straight leg raise. Results & Data Vital Signs (Past 12 Hours) Vital Signs Temp Pulse Resp BP Pulse Ox O2 Del Method 01/05/23 02:25 36.6 C 79 16 138/74 98 Room Air 01/04/23 23:19 36.7 C 93 H 16 154/79 H 98 Room Air 01/04/23 19:28 36.9 C 102 H 18 137/88 97 Room Air
[2023-01-05] MEDS: ACETAMINOPHEN 500 MG TAB PO SCH (05:49)
[2023-01-05] MEDS: oxyCODONE HCL IR 5 MG TAB (IMMEDIATE RELEASE) PO PRN ×2 (05:50→10:53)
[2023-01-05 06:52] LABS: Hematocrit (blood only) 37.1 % (42.0-52.0); Hemoglobin 12.8 g/dl (14.0-18.0); Mean Corpuscular Hemoglobin 31.6 pg (25.0-34.0); Mean Corpuscular Hgb Conc 34.5 g/dL (32.0-36.0); Mean Corpuscular Volume 91.6 fL (80.0-100.0); Mean Platelet Volume 9.9 fL (9.4-12.4); Platelet Count 170 K/uL (130-400); RDW Coefficient of Variation 11.6 % (11.5-14.5); RDW Standard Deviation 39.1 fL (36.4-46.3); Red Blood Count 4.05 M/uL (4.70-6.10); White Blood Count 12.91 K/ul (4.8-10.8)
[2023-01-05 07:31] LABS: BUN Creatinine Ratio 17.4 (10-20); Calcium 8.5 mg/dl (8.6-10.3); Creatinine Clr Calc Pharmacy 93.6 ml/min; Est GFR (Non-African American) 92.3 ml/min; Potassium 3.8 mmol/L (3.5-5.1)
[2023-01-05] MEDS: ALLERGY Noted to ORDERED Medication SCH (08:11)
[2023-01-05] MEDS: Scopolamine CHECK PATCH PLACEMENT SCH (08:11)
[2023-01-05] MEDS: DOCUSATE SODIUM 100 MG CAP PO SCH (08:12)
[2023-01-05] MEDS: FERROUS GLUCONATE 324 MG TAB PO SCH (08:12)
[2023-01-05] MEDS: ASCORBIC ACID 500 MG TAB PO SCH (08:12)
--- NOTE | 2023-01-05 08:37 | Orthopedic Progress Note ---
Date of Service January 05, 2023 Assessment & Plan (1) Osteoarthritis of right knee: Plan: POD #1 s/p Right TKA, doing as well as expected. He will continue with WBAT with walker. Continue pain control prescription will be sent for oxycodone. We discussed risk dosage and side effects of medication. He was advised he can continue to take Tylenol with this. He should avoid NSAIDs at this time due to taken Eliquis. DVT prophylaxis: He will continue with the TEDs 3 weeks and a prescription of Eliquis 2.5 mg BID for 6 weeks will be sent to the pharmacy. He will be having home PT OT He is aware he has an appointment to have have dressing changed in the office 01/07/23 Patient will be discharged home with home health services once physical therapy has seen him and deemed him safe to return home. Patient was advised if he has any questions, concerns, or or change in symptoms to contact the office immediately. Patient verbalized understanding is in agreement with plan. Admission and Anticipated Discharge Date Admission Date: January 04, 2023 Subjective Patient is a 62-year-old male who is a known patient of Dr. Gann. He is seen bedside this morning. He is postop day 1 status post a right total knee arthroplasty. He is alert and oriented pleasant and conversive. He is in good spirits. He states he is doing well. He feels his pain is being managed with oxycodone and Tylenol. He states he has no pain at this time. He did report having a dull tooth ache in the right knee throughout the night and had difficulty sleeping but feels great this morning. He denies any paresthesia in the right lower extremity. He states he is able to eat and drink without any nausea or vomiting. He denies any fever, chills, chest pain, dizziness, or shortness of breath. He feels like he is ready to go home. Review of Systems Review of Systems: Please refer to HPI Physical Exam Physical Exam: General: Patient is alert and oriented x3 no acute distress pleasant and conversive Integumentary/musculoskeletal: Dressing is in place negative for any soiling. He is able to freely dorsiflex and plantarflex ankle and move toes. He is able to flex knee to approximately 20 degrees limited due to bulky dressing. He is able to do a straight leg raise without assistance. Patient's calf is soft and nontender. Negative Homans. Dorsal pedis pulse is 2. Results & Data Vital Signs (Past 12 Hours) Vital Signs Temp Pulse Resp BP BP Pulse Ox O2 Del Method 01/05/23 08:02 36.7 C 83 20 148/89 H 98 Room Air 01/05/23 02:25 36.6 C 79 16 138/74 98 Room Air 01/04/23 23:19 36.7 C 93 H 16 154/79 H 98 Room Air Laboratory Results 01/05/23 01/05/23 Range/Units 06:20 06:20 WBC 12.91 H (4.8-10.8) K/ul RBC 4.05 L (4.70-6.10) M/uL Hgb 12.8 L (14.0-18.0) g/dl Hct 37.1 L (42.0-52.0) % MCV 91.6 (80.0-100.0) fL MCH 31.6 (25.0-34.0) pg MCHC 34.5 (32.0-36.0) g/dL RDW Std Deviation 39.1 (36.4-46.3) fL RDW Coeff of [place] 11.6 (11.5-14.5) % Plt Count 170 (130-400) K/uL MPV 9.9 (9.4-12.4) fL Sodium 140 (136-145) mmol/L Potassium 3.8 (3.5-5.1) mmol/L Chloride 106 (98-107) mmol/L Carbon Dioxide 28 (21-32) mmol/L Anion Gap 6 (3-11) BUN 15 (6-23) mg/dl Creatinine 0.86 (0.6-1.4) mg/dl Est Cr Clr Drug Dosing 93.6 ml/min Est GFR ( Amer) 107.0 ml/min Est GFR (Non-Af Amer) 92.3 ml/min BUN/Creatinine Ratio 17.4 (10-20) Glucose 138 H (70-99(Fasting)) mg/dl Calcium 8.5 L (8.6-10.3) mg/dl Diagnostic Findings Knee X-Ray 01/04/23 10:14 XR knee RT 1 or 2V routine CLINICAL HISTORY: Surgical Post Op TECHNIQUE: 2 views of the right knee were obtained. Comparison: Comparison is made to leg length study 01/28/2022 FINDINGS: Patient is status post total knee arthroplasty with expected postsurgical changes including soft tissue swelling and subcutaneous emphysema. No periarticular lucency or hardware fracture is seen. IMPRESSION: Expected postoperative appearance status post placement of total knee arthroplasty. ACT 112: Negative or not required by law. Electronically signed by: Jaime Kasper M.D. 01/04/2023 11:23 AM
[2023-01-05] MEDS ORDERED: PANTOprazole 40 MG TAB PO SCH (09:00)
[2023-01-05] MEDS ORDERED: APIXABAN 2.5 MG TAB PO SCH (09:00)
[2023-01-05] MEDS ORDERED: MULTIVITAMIN TAB PO SCH (09:00)
--- NOTE | 2023-01-06 14:17 | Discharge Summary ---
Date of Service January 06, 2023 Admission HPI Per Admitting Provider Patient is a 62-year-old male here today for his History and physical examination for above procedure. 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 Active and wants to recover as quickly as possible for surgery. He has been dealing with knee pain for couple years now. He did try cortisone injections which initially helped him but his last injection did not help. He endorses swelling and trouble weightbearing. He has difficulty bending and flexing his knee fully. Risk and benefits of total joint replacement were discussed with the patient and he is elected to proceed with surgical intervention. Patient has history of PE in 2019 and was on a couple months of anticoagulant. He has no history of heart attacks or strokes. No current or previous history of tobacco use. Review of Systems Denies Recent illnesses, colds/flu, pneumonia, COVID or COVID exposures; Denies Fevers, chills, malaise; Denies Chest pain, heart palpitations; Denies Shortness of breath, cough; Denies Headache or blurry vision; Denies Abdominal pain, nausea, vomiting, diarrhea, or urinary symptoms He says that he has some postnasal drip and feels he has some wheezing Physical Exam Vitals & Measurements T: 36.6 C HR: 80 (Monitored) BP: 160/80 SpO2: 97% Diagnostic Results Dr. Gann reviewed the bilateral knee radiographs which included hips to ankles, AP standing, 45 degree flexion PA view, lateral, and sunrise views, which showed medial joint space narrowing, [id number] on the right and near [id number] on the left. There is marginal osteophytes, subchondral cyst, and sclerosis. T here is 5 degrees varus alignment on the right and 7 degrees varus alignment on the left. [2] Admission Exam (Per Admitting) Constitutional General: Pt is well nourished, seated on the exam table AA&O, in NAD, calm and cooperative during exam HENT: Nontraumatic, no gross deformity, hearing and vision grossly in-tact, PERRL Heart: +S1, +S2, RRR, no murmurs appreciated Lungs: CTABL, no wheezing appreciated Right lower extremity: Skin abnormalities 2+ DP pulse Sensation to light touch is intact Motor to the gastroc soleus, tibialis anterior, and EHL is 5/5. Able to perform straight leg raise. Range of motion right knee 595 + Medial joint line tenderness. - Brian's Ligamentous examination exhibits: Stable and unchanged. Trace knee effusion on the right. + Tenderness to palpation right knee medial and lateral patellar facets. [1] Specialty Data Orthopedic Laboratory Results WBC 12.91 K/ul (4.8-10.8) H 01/05/23 06:20 RBC 4.05 M/uL (4.70-6.10) L 01/05/23 06:20 Hgb 12.8 g/dl (14.0-18.0) L 01/05/23 06:20 Hct 37.1 % (42.0-52.0) L 01/05/23 06:20 MCV 91.6 fL (80.0-100.0) 01/05/23 06:20 MCH 31.6 pg (25.0-34.0) 01/05/23 06:20 MCHC 34.5 g/dL (32.0-36.0) 01/05/23 06:20 RDW Std Deviation 39.1 fL (36.4-46.3) 01/05/23 06:20 RDW Coeff of [place] 11.6 % (11.5-14.5) 01/05/23 06:20 Plt Count 170 K/uL (130-400) 01/05/23 06:20 MPV 9.9 fL (9.4-12.4) 01/05/23 06:20 Sodium 140 mmol/L (136-145) 01/05/23 06:20 Potassium 3.8 mmol/L (3.5-5.1) 01/05/23 06:20 Chloride 106 mmol/L (98-107) 01/05/23 06:20 Carbon Dioxide 28 mmol/L (21-32) 01/05/23 06:20 Anion Gap 6 (3-11) 01/05/23 06:20 BUN 15 mg/dl (6-23) 01/05/23 06:20 Creatinine 0.86 mg/dl (0.6-1.4) 01/05/23 06:20 Est Cr Clr Drug Dosing 93.6 ml/min 01/05/23 06:20 Est GFR ( Amer) 107.0 ml/min 01/05/23 06:20 Est GFR (Non-Af Amer) 92.3 ml/min 01/05/23 06:20 BUN/Creatinine Ratio 17.4 (10-20) 01/05/23 06:20 Glucose 138 mg/dl (70-99(Fasting)) H 01/05/23 06:20 Calcium 8.5 mg/dl (8.6-10.3) L 01/05/23 06:20 Impressions Knee X-Ray 01/04/23 10:14 XR knee RT 1 or 2V routine CLINICAL HISTORY: Surgical Post Op TECHNIQUE: 2 views of the right knee were obtained. Comparison: Comparison is made to leg length study 01/28/2022 FINDINGS: Patient is status post total knee arthroplasty with expected postsurgical changes including soft tissue swelling and subcutaneous emphysema. No periarticular lucency or hardware fracture is seen. IMPRESSION: Expected postoperative appearance status post placement of total knee arthroplasty. ACT 112: Negative or not required by law. Electronically signed by: Jaime Kasper M.D. 01/04/2023 11:23 AM Discharge Data Procedures Performed Operation Date: 01/04/23 07:00 Actual Procedures p Right Total Knee Arthroplasty(Right) - [place] Gann MD Hospital Course (1) Osteoarthritis of right knee: Patient had an uneventful overnight s/p a right total knee arthroplasty. POD #1 s/p Right TKA, doing as well as expected. He will continue with WBAT with walker. Continue pain control prescription will be sent for oxycodone. We discussed risk dosage and side effects of medication. He was advised he can continue to take Tylenol with this. He should avoid NSAIDs at this time due to taken Eliquis. DVT prophylaxis: He will continue with the TEDs 3 weeks and a prescription of Eliquis 2.5 mg BID for 6 weeks will be sent to the pharmacy. He will be having home PT OT He is aware he has an appointment to have have dressing changed in the office 01/07/23 Patient will be discharged home with home health services once physical therapy has seen him and deemed him safe to return home. Patient was advised if he has any questions, concerns, or or change in symptoms to contact the office immediately. Patient verbalized understanding is in agreement with plan.
== END 2023-01-05 11:41 | disposition home health service (06) ==
LOC: PACUINP 05:14 → ASU 05:14 → 3E 12:54